=== PATIENT | male | born 1965 | race Two or more races ===

== ENCOUNTER 2025-04-07 10:12 | Emergency (ER) | payer MEDICAID, OTHER ==
[~2025-04-07] VITALS: Ht 175.3 cm; Wt 84.0 kg
[2025-04-07 10:19] VITALS: O2SAT 100
[2025-04-07 10:43] LABS: CHLORIDE 100 mEq/L (98-107); POTASSIUM 4.1 mEq/L (3.5-5.1); SODIUM 132 mEq/L (136-145)
[2025-04-07 10:44] LABS: CALCIUM 9.2 mg/dL (8.7-10.4); CARBON DIOXIDE 23 mEq/L (21-32)
[2025-04-07 10:49] LABS: CREATININE 1.2 mg/dL (0.6-1.3); ETHANOL BLOOD < 10 mg/dL (<10); GLUCOSE 366 mg/dL (70-105); INR 0.9; PROTHROMBIN TIME 9.8 sec (9.6-11.0); UREA NITROGEN BLOOD 13 mg/dL (9-23)
[2025-04-07 10:53] LABS: BASOPHILS % 0.9 % (0.0-2.0); EOSINOPHILS % 2.1 % (0.0-5.0); HEMATOCRIT. 45.1 % (42.0-52.0); HEMOGLOBIN. 15.3 g/dL (14.0-18.0); LYMPHOCYTES % 23.9 % (20.0-50.0); MEAN CORPUSCULAR HEMOGLOBIN 29.5 pg (28.0-32.0); MEAN CORPUSCULAR HGB CONC 33.9 g/dL (31.0-37.0); MEAN CORPUSCULAR VOLUME 87.1 fL (80.0-94.0); MEAN PLATELET VOLUME 8.7 fl (7.4-10.4); MONOCYTES % 6.9 % (2.0-8.0); NEUTROPHILS % 66.2 % (40.0-76.0); PLATELET 220 x1000/uL (130-400); RED BLOOD CELL COUNT 5.18 mill/uL (4.7-6.1); RED CELL DISTRIBUTION WIDTH 13.8 % (11.6-14.6); WHITE BLOOD COUNT 8.8 x1000/uL (4.5-11.0)
[2025-04-07 11:15] LABS: TROPONIN I HIGH SENSITIVITY < 4 ng/L (3.0-53)
[2025-04-07] MEDS: ASPIRIN 325MG EC TABLET PO SCH (13:23)
[2025-04-07] MEDS: CLOPIDOGREL 75MG TABLET PO SCH (13:23)
[2025-04-07] MEDS ORDERED: IOHEXOL-350 100 ML BOTTLE ONE (14:01)
[2025-04-07 14:30] VITALS: BP 103/65; PULSE 82; RESP 15; TEMP 36.7; O2SAT 96
[2025-04-07] MEDS ORDERED: ONDANSETRON HCL 4MG/2ML INJ IV PRN (14:30)
[2025-04-07] MEDS ORDERED: ACETAMINOPHEN 325MG TABLET PO PRN ×2 (14:30→14:45)
[2025-04-07] MEDS ORDERED: ATOR40TA70 PO (14:31)
[2025-04-07] MEDS ORDERED: DEXTROSE 50% WATER 50ML SYRINGE IV PRN (14:45)
[2025-04-07] MEDS ORDERED: BLOOD SUGAR DIAGNOSTIC STRIP TEST SCH (17:00)
[2025-04-07] MEDS ORDERED: INSULIN LISPRO 100 UNITS/ML SUBCUT SCH (18:20)
[2025-04-07] MEDS ORDERED: ATORVASTATIN CALCIUM 40MG TABLET PO SCH (21:00)
[2025-04-08] MEDS ORDERED: PANTOPRAZOLE SODIUM 40 MG/VIAL IV SCH (09:00)
[2025-04-08] MEDS ORDERED: ASPIRIN 81MG TABLET PO SCH (09:00)
== END 2025-04-07 14:50 | disposition short-term general hospital (02) ==
LOC: ER 10:20
DX: I63.89 Other cerebral infarction (principal); E11.9 Type 2 diabetes mellitus without complications; F17.210 Nicotine dependence, cigarettes, uncomplicated; I10 Essential (primary) hypertension; I65.21 Occlusion and stenosis of right carotid artery; Z79.02 Long term (current) use of antithrombotics/antiplatelets; Z79.899 Other long term (current) drug therapy
CPT/HCPCS: 80048; 80320; 85025; 85610; 84484; 36415; 71045; 70496; 70498; 70450; 93005; 99285; Q9967; Z7610; G0480